=== PATIENT | female | born 1975 | race African-American/Black ===

== ENCOUNTER 2018-05-02 12:13 | Emergency (ER) | payer MEDICAID ==
[~2018-05-02] VITALS: Ht 162.6 cm; Wt 82.5 kg
[2018-05-02] MEDS ORDERED: SODIUM CHLORIDE 0.9% 1,000 ML IV ONE (15:36)
[2018-05-02 16:16] LABS: BASOPHILS % 0.8 % (0.0-2.0); EOSINOPHILS % 0.7 % (0.0-5.0); HEMATOCRIT. 30.4 % (36.0-48.0); HEMOGLOBIN. 8.7 g/dL (12.0-16.0); LYMPHOCYTES % 33.1 % (20.0-50.0); MEAN CORPUSCULAR HEMOGLOBIN 18.6 pg (28.0-32.0); MONOCYTES % 8.4 % (2.0-8.0); PLATELET 570 x1000/uL (130-400); RED BLOOD CELL COUNT 4.69 mill/uL (4.2-5.4); RED CELL DISTRIBUTION WIDTH 18.1 % (11.6-14.6)
[2018-05-02 16:19] LABS: CHLORIDE 106 mEq/L (98-107)
[2018-05-02 16:22] LABS: INR 1.1; PROTHROMBIN TIME 10.6 sec (9.1-11.1)
[2018-05-02 16:32] LABS: PLATELET ESTIMATE MARKEDLY INCREASED
[2018-05-02 17:08] LABS: CLARITY URINE TURBID (CLEAR); KETONES URINE TRACE (NEGATIVE); LEUKOCYTE ESTERASE URINE 3+ (NEGATIVE); NITRITE URINE POSITIVE (NEGATIVE); OCCULT BLOOD URINE 3+ (NEGATIVE); PH URINE 6.5 (4.5-8.0); PROTEIN URINE 2+ (NEGATIVE); SPECIFIC GRAVITY URINE 1.017 (1.005-1.030)
[2018-05-02 17:11] LABS: COLOR URINE YELLOW (YELLOW)
[2018-05-02 18:51] VITALS: BP 140/77
== END 2018-05-02 19:49 | disposition home or self-care (01) ==
LOC: ER 13:44
DX: D50.9 Iron deficiency anemia, unspecified (principal); N39.0 Urinary tract infection, site not specified; K21.9 Gastro-esophageal reflux disease without esophagitis; R42 Dizziness and giddiness; Z98.890 Other specified postprocedural states; Z88.0 Allergy status to penicillin
CPT/HCPCS: 36415; 80053; 81003; 81025; 85025; 85610; 86850; 86900; 86901; 87077; 87086; 87186; 93005; 96360; 96361; 99284; J7030

== ENCOUNTER 2018-10-03 06:34 | Day surgery (SDC) | payer MEDICAID ==
[~2018-10-03] VITALS: Ht 160 cm; Wt 103.0 kg
[2018-10-03 07:30] VITALS: BP 134/81
[2018-10-03] MEDS ORDERED: CEFAZOLIN 1000MG PREMIX 50 ML IV ONE ×2 (08:45→09:13)
[2018-10-03 09:06] LABS: BASOPHILS % 0.8 % (0.0-2.0); EOSINOPHILS % 1.3 % (0.0-5.0); HEMATOCRIT. 34.7 % (36.0-48.0); HEMOGLOBIN. 10.6 g/dL (12.0-16.0); LYMPHOCYTES % 32.6 % (20.0-50.0); MEAN CORPUSCULAR HEMOGLOBIN 23.1 pg (28.0-32.0); MEAN CORPUSCULAR VOLUME 75.9 fL (81.0-99.0); MEAN PLATELET VOLUME 8.4 fl (7.4-10.4); MONOCYTES % 7.6 % (2.0-8.0); NEUTROPHILS % 57.7 % (40.0-76.0); PLATELET 459 x1000/uL (130-400); RED BLOOD CELL COUNT 4.57 mill/uL (4.2-5.4); RED CELL DISTRIBUTION WIDTH 15.4 % (11.6-14.6)
[2018-10-03 09:10] LABS: CHLORIDE 104 mEq/L (98-107)
[2018-10-03 09:24] LABS: B-HCG QUANTITATIVE < 1 mIU/mL (<3)
[2018-10-03] MEDS ORDERED: CLINDAMYCIN 900 MG in DEXTROSE 5% WATER 50 ML IV ONE (11:15)
[2018-10-03] MEDS ORDERED: FENTANYL CITRATE/PF 50MCG/ML 2ML VIAL ONE (11:17)
[2018-10-03] MEDS ORDERED: PROPOFOL 200MG/20ML VIAL IV ONE (11:17)
[2018-10-03] MEDS ORDERED: MIDAZOLAM HCL 2 MG/2 ML VIAL ONE (11:18)
[2018-10-03] MEDS ORDERED: LIDOCAINE HCL/PF 1% 10 MG/ML 5ML VIAL ONE (11:18)
[2018-10-03] MEDS ORDERED: ONDANSETRON HCL 4MG/2ML INJ ONE (11:42)
[2018-10-03] MEDS ORDERED: CLINDAMYCIN 900 MG in SODIUM CHLORIDE 0.9% 50 ML IV NR (12:00)
[2018-10-03] MEDS ORDERED: ONDANSETRON HCL 4MG/2ML INJ IV PRN (12:15)
[2018-10-03] MEDS ORDERED: FENTANYL CITRATE/PF 50MCG/ML 2ML VIAL IV PRN (12:15)
[2018-10-03] MEDS ORDERED: ACETAMINOPHEN 325MG TABLET PO PRN (12:15)
[2018-10-03] MEDS ORDERED: MEPERIDINE HCL/PF 25MG/ML CPJ IV PRN (12:15)
[2018-10-03] MEDS ORDERED: DEXT 5%/0.45% NACL KCL 20MEQ/L 1,000 ML IV SCH (13:30)
== END 2018-10-03 13:45 | disposition home or self-care (01) ==
LOC: ER 06:34 → UNDOADMIN 08:46 → 6EST 08:46 → ER 09:45 → ENRESERV 10:08 → OR 10:50 → ORIP 17:01 → 6EST 17:01
PROVIDERS: ATTEND Specialist
DX: D25.9 Leiomyoma of uterus, unspecified (principal); N72 Inflammatory disease of cervix uteri; N92.1 Excessive and frequent menstruation with irregular cycle; D50.9 Iron deficiency anemia, unspecified; K21.9 Gastro-esophageal reflux disease without esophagitis; J45.909 Unspecified asthma, uncomplicated; E66.9 Obesity, unspecified; Z68.41 Body mass index [BMI] 40.0-44.9, adult; Z79.899 Other long term (current) drug therapy; Z88.0 Allergy status to penicillin
CPT/HCPCS: 36415; 58145; 76830; 76856; 80053; 84702; 85025; 86850; 86900; 86901; 88305; 99285; J2250; J2405; J2704; J3010; J3490; J0690

== ENCOUNTER 2018-11-11 17:05 | Emergency (ER) | payer MEDICAID ==
[~2018-11-11] VITALS: Ht 162.6 cm; Wt 105.0 kg
[2018-11-11] MEDS ORDERED: ENALAPRIL 5MG TABLET PO SCH (18:15)
[2018-11-11 20:29] VITALS: BP 131/71
== END 2018-11-11 20:50 | disposition home or self-care (01) ==
LOC: ER 17:05
DX: I10 Essential (primary) hypertension (principal); R60.0 Localized edema; D64.9 Anemia, unspecified; Z88.0 Allergy status to penicillin; Z87.42 Personal history of other diseases of the female genital tract; Z87.74 Personal history of (corrected) congenital malformations of heart and circulatory system
CPT/HCPCS: 93970; 99284

== ENCOUNTER 2018-12-17 23:34 | Emergency (ER) | payer MEDICAID, MEDICARE ==
[~2018-12-17] VITALS: Ht 162.6 cm; Wt 103.0 kg
[2018-12-18 08:22] LABS: BASOPHILS % 0.8 % (0.0-2.0); EOSINOPHILS % 0.9 % (0.0-5.0); HEMATOCRIT. 34.3 % (36.0-48.0); HEMOGLOBIN. 10.5 g/dL (12.0-16.0); LYMPHOCYTES % 28.8 % (20.0-50.0); MEAN CORPUSCULAR HEMOGLOBIN 22.2 pg (28.0-32.0); MEAN CORPUSCULAR VOLUME 72.9 fL (81.0-99.0); MEAN PLATELET VOLUME 8.1 fl (7.4-10.4); MONOCYTES % 8.5 % (2.0-8.0); PLATELET 454 x1000/uL (130-400); RED BLOOD CELL COUNT 4.71 mill/uL (4.2-5.4); RED CELL DISTRIBUTION WIDTH 16.3 % (11.6-14.6)
[2018-12-18 08:31] LABS: CHLORIDE 108 mEq/L (98-107)
[2018-12-18 10:35] VITALS: BP 165/95
== END 2018-12-18 10:34 | disposition home or self-care (01) ==
LOC: ER 23:34
DX: R06.02 Shortness of breath (principal); I11.9 Hypertensive heart disease without heart failure; D64.9 Anemia, unspecified; Z98.890 Other specified postprocedural states; Z88.0 Allergy status to penicillin
CPT/HCPCS: 36415; 71045; 81025; 83880; 84484; 93005; 99284

== ENCOUNTER 2019-01-04 16:31 | Inpatient (IN) | payer MEDICARE ==
[~2019-01-04] VITALS: Ht 160 cm; Wt 104.8 kg
[2019-01-04 19:23] LABS: CHLORIDE 105 mEq/L (98-107)
[2019-01-04 19:28] LABS: HCG SCREEN NEGATIVE
[2019-01-04 19:29] LABS: D-DIMER 0.62 mg/L FEU (<0.50); PARTIAL THROMBOPLASTIN TIME 27.6 sec (23.4-31.0); PROTHROMBIN TIME 10.4 sec (9.6-11.0)
[2019-01-04 19:36] LABS: BASOPHILS % 0.5 % (0.0-2.0); EOSINOPHILS % 1.3 % (0.0-5.0); HEMATOCRIT. 37.6 % (36.0-48.0); HEMOGLOBIN. 11.5 g/dL (12.0-16.0); LYMPHOCYTES % 33.8 % (20.0-50.0); MEAN CORPUSCULAR VOLUME 75.2 fL (81.0-99.0); MEAN PLATELET VOLUME 8.6 fl (7.4-10.4); MONOCYTES % 6.8 % (2.0-8.0); NEUTROPHILS % 57.6 % (40.0-76.0); PLATELET 404 x1000/uL (130-400); RED CELL DISTRIBUTION WIDTH 18.3 % (11.6-14.6)
[2019-01-04] MEDS ORDERED: IOHEXOL-350 100 ML BOTTLE ONE (22:17)
[2019-01-05] MEDS ORDERED: LORAZEPAM 0.5MG TABLET PO PRN (08:15)
[2019-01-05] MEDS ORDERED: CLONIDINE 0.1MG TABLET PO PRN (08:15)
[2019-01-05] MEDS ORDERED: HYDROCODONE/ACETAMINOPHEN 5/325MG TABLET PO PRN (08:15)
[2019-01-05] MEDS ORDERED: ONDANSETRON HCL 4MG/2ML INJ IV PRN (08:15)
[2019-01-05] MEDS ORDERED: IPRATROPIUM/ALBUTEROL 0.5-3(2.5)MG/3ML NEB HHN PRN (08:15)
[2019-01-05] MEDS ORDERED: DOCUSATE SODIUM 100MG CAPSULE PO PRN (08:15)
[2019-01-05] MEDS ORDERED: MORPHINE SULFATE 2 MG/ML CPJ (NOT FOR IM USE) IV PRN (08:15)
[2019-01-05] MEDS ORDERED: ACETAMINOPHEN 325MG TABLET PO PRN (08:15)
[2019-01-05 10:02] VITALS: BP 148/92
[2019-01-05] MEDS ORDERED: LORA10TA7 MT (10:08)
[2019-01-05] MEDS ORDERED: FERR325T6 MT (10:08)
[2019-01-05] MEDS ORDERED: ENAL2.5T MT (10:08)
[2019-01-05] MEDS ORDERED: POTASSIUM CHLORIDE 20MEQ TABLET SR PO SCH (11:15)
[2019-01-05] MEDS ORDERED: ENOXAPARIN 30MG/0.3ML SYR SUBCUT SCH (11:30)
[2019-01-05 12:00] VITALS: BP 130/70
[2019-01-05] MEDS ORDERED: GUAI118S49 MT (12:08)
[2019-01-05] MEDS ORDERED: HYDR12.54 MT (12:08)
[2019-01-05 14:46] VITALS: BP 130/70
[2019-01-05 16:00] VITALS: BP 129/70
== END 2019-01-05 18:04 | disposition home or self-care (01) | DRG 145 ==
LOC: ER 16:31 → 8WST 21:39 → ENRESERV 01-05 08:11
PROVIDERS: ADMIT Internal Medicine; ATTEND Internal Medicine
DX: J20.8 Acute bronchitis due to other specified organisms (principal); I38 Endocarditis, valve unspecified; D50.9 Iron deficiency anemia, unspecified; D72.829 Elevated white blood cell count, unspecified; E87.6 Hypokalemia; I10 Essential (primary) hypertension; I25.9 Chronic ischemic heart disease, unspecified
CPT/HCPCS: 36415; 71045; 71275; 83880; 84484; 84703; 85379; 93005; 93970; 99285; J1650; Q9967

== ENCOUNTER 2019-01-07 09:12 | Emergency (ER) | payer MEDICARE ==
[~2019-01-07] VITALS: Ht 167.6 cm; Wt 75.0 kg
[~2019-01-07 09:12] MED LIST: FERR325T6 MT; GUAI118S49 MT; HYDR12.54 MT; LORA10TA7 MT
[2019-01-07 10:02] LABS: BG BASE EXCESS 0.3 mmol/L (-2.0-2.0); BG CARBOXYHEMOGLOBIN 0.1 % (0.5-1.5); BG DEOXYHEMOGLOBIN 4.5 % (0.0-5.0); BG FRACTION INSPIRED OXYGEN 21; BG HCO3 ACT 25.3 mmol/L (22.0-26.0); BG METHEMOGLOBIN 0.2 % (0.0-1.5); BG OXYGEN SATURATION 95.5 % (92.0-98.5); BG OXYHEMOGLOBIN 95.2 % (94.0-97.0); BG PCO2 42.3 mmHg (35.0-45.0); BG PH 7.394 (7.350-7.450); BG PO2 81.3 mmHg (75.0-100.0); BG SAMPLE SITE RIGHT BRACHIAL; BG TOTAL HEMOGLOBIN 11.8 g/dL (12.0-18.0); BG VENT MODE ROOM AIR
[2019-01-07 10:45] LABS: BASOPHILS % 0.8 % (0.0-2.0); EOSINOPHILS % 1.1 % (0.0-5.0); HEMATOCRIT. 34.8 % (36.0-48.0); HEMOGLOBIN. 10.7 g/dL (12.0-16.0); LYMPHOCYTES % 24.9 % (20.0-50.0); MEAN CORPUSCULAR HEMOGLOBIN 23.1 pg (28.0-32.0); MEAN CORPUSCULAR VOLUME 75.2 fL (81.0-99.0); MEAN PLATELET VOLUME 8.2 fl (7.4-10.4); NEUTROPHILS % 65.2 % (40.0-76.0); PLATELET 385 x1000/uL (130-400); RED BLOOD CELL COUNT 4.63 mill/uL (4.2-5.4); RED CELL DISTRIBUTION WIDTH 18.7 % (11.6-14.6)
[2019-01-07 10:53] LABS: CHLORIDE 106 mEq/L (98-107)
[2019-01-07 11:45] VITALS: BP 152/86
== END 2019-01-07 11:46 | disposition home or self-care (01) ==
LOC: ER 09:12
DX: R06.00 Dyspnea, unspecified (principal)
CPT/HCPCS: 36415; 36600; 71045; 82375; 82805; 93005; 99284

== ENCOUNTER 2021-02-09 23:02 | Emergency (ER) | payer MEDICARE ==
[~2021-02-09] VITALS: Ht 160 cm; Wt 105.0 kg
[2021-02-10 03:09] LABS: BASOPHILS % 0.7 % (0.0-2.0); EOSINOPHILS % 1.7 % (0.0-5.0); HEMATOCRIT. 41.3 % (36.0-48.0); MEAN CORPUSCULAR HEMOGLOBIN 26.8 pg (28.0-32.0); MEAN CORPUSCULAR VOLUME 84.9 fL (81.0-99.0); MEAN PLATELET VOLUME 8.9 fl (7.4-10.4); MONOCYTES % 9.2 % (2.0-8.0); NEUTROPHILS % 51.4 % (40.0-76.0); PLATELET 332 x1000/uL (130-400); RED BLOOD CELL COUNT 4.87 mill/uL (4.2-5.4); RED CELL DISTRIBUTION WIDTH 14.2 % (11.6-14.6)
[2021-02-10 03:12] LABS: CHLORIDE 106 mEq/L (98-107)
[2021-02-10] MEDS ORDERED: ACETAMINOPHEN 325MG TABLET PO ONE (04:15)
[2021-02-10] MEDS ORDERED: ACET-2708 MT (04:30)
[2021-02-10 04:50] VITALS: BP 125/69
== END 2021-02-10 04:50 | disposition home or self-care (01) ==
LOC: ER 23:02
DX: R60.0 Localized edema (principal); Z13.9 Encounter for screening, unspecified; I10 Essential (primary) hypertension; Z88.0 Allergy status to penicillin
CPT/HCPCS: 36415; 71045; 80053; 83880; 84484; 85025; 85379; 93005; 93970; 99285

== ENCOUNTER 2021-02-22 21:55 | Emergency (ER) | payer MEDICARE ==
[~2021-02-22] VITALS: Ht 160 cm; Wt 107.0 kg
[~2021-02-22 21:55] MED LIST changes: +ACET-2708 MT
[2021-02-23] MEDS ORDERED: KETOROLAC 60MG/2ML VIAL IM ONE (00:45)
[2021-02-23 00:53] VITALS: BP 146/71
[2021-02-23 01:23] LABS: BASOPHILS % 0.9 % (0.0-2.0); EOSINOPHILS % 2.2 % (0.0-5.0); HEMATOCRIT. 39.7 % (36.0-48.0); HEMOGLOBIN. 12.9 g/dL (12.0-16.0); MEAN CORPUSCULAR HEMOGLOBIN 27.3 pg (28.0-32.0); MEAN CORPUSCULAR VOLUME 84.2 fL (81.0-99.0); MEAN PLATELET VOLUME 8.2 fl (7.4-10.4); MONOCYTES % 8.6 % (2.0-8.0); NEUTROPHILS % 49.3 % (40.0-76.0); PLATELET 335 x1000/uL (130-400); RED BLOOD CELL COUNT 4.71 mill/uL (4.2-5.4); RED CELL DISTRIBUTION WIDTH 14.3 % (11.6-14.6)
[2021-02-23 01:29] LABS: CHLORIDE 106 mEq/L (98-107)
[2021-02-23] MEDS ORDERED: POTASSIUM CHLORIDE 20MEQ TABLET SR PO ONE (02:00)
== END 2021-02-23 03:29 | disposition home or self-care (01) ==
LOC: ER 21:55
DX: R07.89 Other chest pain (principal); E87.6 Hypokalemia; I51.9 Heart disease, unspecified; R73.03 Prediabetes; Z88.0 Allergy status to penicillin; Z95.1 Presence of aortocoronary bypass graft
CPT/HCPCS: 36415; 71045; 80053; 81025; 83880; 84484; 85025; 93005; 96372; 99285; J1885

== ENCOUNTER 2022-06-12 13:47 | Emergency (ER) | payer MEDICAID, MEDICARE ==
[~2022-06-12] VITALS: Ht 160 cm; Wt 104.0 kg
[2022-06-12] MEDS ORDERED: HYDRALAZINE HCL 50MG TABLET PO ONE (18:15)
[2022-06-12] MEDS ORDERED: ACETAMINOPHEN 325MG TABLET PO ONE (18:15)
[2022-06-12] MEDS ORDERED: HYDR-4133 MT (19:18)
[2022-06-12 20:35] VITALS: BP 147/90
== END 2022-06-12 20:35 | disposition home or self-care (01) ==
LOC: ER 13:47
DX: I10 Essential (primary) hypertension (principal); Z88.0 Allergy status to penicillin; Z79.899 Other long term (current) drug therapy
CPT/HCPCS: 93005; 99283

== ENCOUNTER 2022-12-26 12:25 | Emergency (ER) | payer MEDICAID, OTHER ==
[~2022-12-26] VITALS: Ht 160 cm; Wt 107.0 kg
[~2022-12-26 12:25] MED LIST changes: +ASPI-1497 PO; +AZIT500T8 PO; +EMPA25TA PO; +ENAL2.5T39 PO; +FURO-151 PO; +HYDR-4133 MT; +METO25TA6 PO; +OMEP40CA20 PO
[2022-12-26 12:37] VITALS: O2SAT 100
[2022-12-26] MEDS ORDERED: AMLODIPINE 5MG TABLET PO ONE (13:15)
[2022-12-26 13:38] LABS: BASOPHILS % 0.5 % (0.0-2.0); EOSINOPHILS % 0.7 % (0.0-5.0); HEMATOCRIT. 38.4 % (36.0-48.0); HEMOGLOBIN. 12.3 g/dL (12.0-16.0); MEAN CORPUSCULAR HEMOGLOBIN 26.6 pg (28.0-32.0); MEAN CORPUSCULAR VOLUME 83.1 fL (81.0-99.0); MEAN PLATELET VOLUME 8.4 fl (7.4-10.4); MONOCYTES % 8.1 % (2.0-8.0); NEUTROPHILS % 63.7 % (40.0-76.0); PLATELET 351 x1000/uL (130-400); RED BLOOD CELL COUNT 4.62 mill/uL (4.2-5.4); RED CELL DISTRIBUTION WIDTH 15.2 % (11.6-14.6); WHITE BLOOD COUNT 9.9 x1000/uL (4.5-11.0)
[2022-12-26 13:42] LABS: CHLORIDE 104 mEq/L (98-107); INDEX HEMOLYSI 1 (1-3); INDEX ICTERIC 1 (1-4); INDEX LIPEMIC 1 (1-3); POTASSIUM 3.6 mEq/L (3.5-5.1); SODIUM 139 mEq/L (136-145)
[2022-12-26 13:54] LABS: ALANINE AMINOTRANSFERASE 26 IU/L (13-61); ALBUMIN 3.6 g/dL (3.4-5.0); ASPARTATE AMINOTRANSFERASE 18 IU/L (15-37); BILIRUBIN TOTAL 0.3 mg/dL (0.1-1.0); CALCIUM 9.2 mg/dL (8.5-10.1); CARBON DIOXIDE 29 mEq/L (21-32); CREATININE 0.6 mg/dL (0.6-1.3); GLUCOSE 150 mg/dL (70-105); NT PRO B-TYPE NATRIURETIC PEP 90 pg/mL (5-125); PROTEIN TOTAL 8.3 g/dL (6.0-8.3); TROPONIN I HIGH SENSITIVITY 4 ng/L (<54); UREA NITROGEN BLOOD 10 mg/dL (7-21)
[2022-12-26] MEDS ORDERED: AMLO5TAB4 MT (14:50)
[2022-12-26 15:49] VITALS: BP 141/86; PULSE 86; RESP 18; TEMP 98
== END 2022-12-26 15:55 | disposition home or self-care (01) ==
LOC: ER 12:25
DX: I10 Essential (primary) hypertension (principal); Z88.0 Allergy status to penicillin; Z79.899 Other long term (current) drug therapy
CPT/HCPCS: 36415; 80053; 83880; 84484; 85025; 93005; 99284

== ENCOUNTER 2023-02-14 02:50 | Emergency (ER) | payer MEDICAID, MEDICARE ==
[~2023-02-14] VITALS: Ht 160 cm; Wt 107.2 kg
[~2023-02-14 02:50] MED LIST changes: +AMLO5TAB4 MT
[2023-02-14 02:53] VITALS: BP 132/81; RESP 16; TEMP 98.5; O2SAT 99
[2023-02-14 02:56] VITALS: PULSE 85
[2023-02-14 03:24] LABS: BASOPHILS % 0.5 % (0.0-2.0); EOSINOPHILS % 1.2 % (0.0-5.0); HEMATOCRIT. 41.3 % (36.0-48.0); HEMOGLOBIN. 13.3 g/dL (12.0-16.0); MEAN CORPUSCULAR HEMOGLOBIN 26.8 pg (28.0-32.0); MEAN CORPUSCULAR HGB CONC 32.1 g/dL (31.0-37.0); MEAN CORPUSCULAR VOLUME 83.4 fL (81.0-99.0); MEAN PLATELET VOLUME 8.6 fl (7.4-10.4); MONOCYTES % 9.3 % (2.0-8.0); PLATELET 360 x1000/uL (130-400); RED BLOOD CELL COUNT 4.95 mill/uL (4.2-5.4); RED CELL DISTRIBUTION WIDTH 15.3 % (11.6-14.6); WHITE BLOOD COUNT 11.1 x1000/uL (4.5-11.0)
[2023-02-14 03:28] LABS: PARTIAL THROMBOPLASTIN TIME 27.6 sec (23.4-31.0); PROTHROMBIN TIME 10.6 sec (9.6-11.0)
[2023-02-14 03:37] LABS: CHLORIDE 107 mEq/L (98-107); INDEX HEMOLYSI 1 (1-3); INDEX ICTERIC 1 (1-4); INDEX LIPEMIC 1 (1-3); POTASSIUM 3.4 mEq/L (3.5-5.1); SODIUM 140 mEq/L (136-145)
[2023-02-14 03:46] LABS: ALANINE AMINOTRANSFERASE 25 IU/L (13-61); ALBUMIN 3.8 g/dL (3.4-5.0); ASPARTATE AMINOTRANSFERASE 15 IU/L (15-37); BILIRUBIN TOTAL 0.3 mg/dL (0.1-1.0); CALCIUM 8.9 mg/dL (8.5-10.1); CREATININE 0.7 mg/dL (0.6-1.3); GLUCOSE 181 mg/dL (70-105); PROTEIN TOTAL 8.5 g/dL (6.0-8.3); TROPONIN I HIGH SENSITIVITY 5 ng/L (<54); UREA NITROGEN BLOOD 8 mg/dL (7-21)
[2023-02-14] MEDS ORDERED: ALBU6.7H15 INH (05:33)
[2023-02-14] MEDS ORDERED: AZIT1PAC9 PO (05:33)
[2023-02-14 11:59] LABS: CARBON DIOXIDE 24 mEq/L (21-32)
== END 2023-02-14 05:47 | disposition home or self-care (01) ==
LOC: ER 02:50
DX: J40 Bronchitis, not specified as acute or chronic (principal); Z88.0 Allergy status to penicillin; Z79.899 Other long term (current) drug therapy
CPT/HCPCS: 36415; 71045; 80053; 84484; 85025; 93005; 99285

== ENCOUNTER 2023-08-09 15:13 | Emergency (ER) | payer BC, MEDICAID, MEDICARE ==
[~2023-08-09] VITALS: Ht 157.5 cm; Wt 101.0 kg
[~2023-08-09 15:13] MED LIST changes: +ALBU6.7H15 INH; +AZIT1PAC9 PO; +HYDR-2988 MT; -HYDR-4133 MT
[2023-08-09 15:33] VITALS: O2SAT 96
[2023-08-09] MEDS: DEXAMETHASONE 4MG/ML 1ML VIAL IV ONE (17:38)
[2023-08-09] MEDS: KETOROLAC 30MG/ML VIAL IM ONE (17:38)
[2023-08-09] MEDS ORDERED: CLIN-194 MT (18:53)
[2023-08-09 19:14] VITALS: BP 133/79; PULSE 99; RESP 18; TEMP 97.8
== END 2023-08-09 19:00 | disposition home or self-care (01) ==
LOC: ER 15:13
DX: J02.9 Acute pharyngitis, unspecified (principal); R50.9 Fever, unspecified; R13.19 Other dysphagia; R59.0 Localized enlarged lymph nodes; I10 Essential (primary) hypertension; Z98.890 Other specified postprocedural states
CPT/HCPCS: 99284; 96374; 81025; 87430; 87070; 96372; J1100; J1885

== ENCOUNTER 2023-08-13 06:28 | Emergency (ER) | payer BC, MEDICAID ==
[~2023-08-13] VITALS: Ht 157.5 cm; Wt 98.0 kg
[~2023-08-13 06:28] MED LIST changes: +CLIN-194 MT
[2023-08-13 06:37] VITALS: TEMP 98.3; O2SAT 100
[2023-08-13] MEDS ORDERED: AZIT250T12 MT (09:00)
[2023-08-13] MEDS ORDERED: IBUP-2029 MT (09:01)
[2023-08-13 09:22] VITALS: BP 137/85; PULSE 82; RESP 20
[2023-08-13] MEDS: KETOROLAC 30MG/ML VIAL IM ONE (09:22)
== END 2023-08-13 09:28 | disposition home or self-care (01) ==
LOC: ER 06:28
DX: H66.92 Otitis media, unspecified, left ear (principal); E11.9 Type 2 diabetes mellitus without complications; I10 Essential (primary) hypertension; Z98.890 Other specified postprocedural states; Z88.0 Allergy status to penicillin
CPT/HCPCS: 99283; 96372; J1885

== ENCOUNTER 2024-04-12 22:18 | Inpatient (IN) | payer MEDICAID ==
[~2024-04-12] VITALS: Ht 160 cm; Wt 102.4 kg
[2024-04-12 01:20] VITALS: PULSE 89; RESP 22; O2SAT 96
[~2024-04-12 22:18] MED LIST changes: -AMLO5TAB4 MT; +AMLO5TAB5 MT; +ASPI-1079 PO; -AZIT1PAC9 PO; -AZIT500T8 PO; -CLIN-194 MT; +FURO-151 MT; +IBUP-2029 MT; +LEVO-65 MT; +METO-539 MT
[2024-04-13] MEDS: ASPIRIN 325MG EC TABLET PO ONE (00:15)
[2024-04-13] MEDS ORDERED: ACETAMINOPHEN 325MG TABLET PO ONE (00:30)
[2024-04-13] MEDS ORDERED: LEVOFLOXACIN 750MG PREMIX 150 ML IV ONE (00:45)
[2024-04-13] MEDS: SODIUM CHLORIDE 0.9% (SEPSIS BOLUS) IV ONE (00:45)
[2024-04-13 01:01] LABS: HEMATOCRIT. 39.7 % (36.0-48.0); MEAN CORPUSCULAR HEMOGLOBIN 28.7 pg (28.0-32.0); MEAN CORPUSCULAR HGB CONC 32.6 g/dL (31.0-37.0); MEAN CORPUSCULAR VOLUME 87.9 fL (81.0-99.0); MEAN PLATELET VOLUME 8.4 fl (7.4-10.4); PLATELET 256 x1000/uL (130-400); RED BLOOD CELL COUNT 4.51 mill/uL (4.2-5.4); RED CELL DISTRIBUTION WIDTH 14.6 % (11.6-14.6); WHITE BLOOD COUNT 6.2 x1000/uL (4.5-11.0)
[2024-04-13 01:17] LABS: CHLORIDE 102 mEq/L (98-107); POTASSIUM 3.4 mEq/L (3.5-5.1); SODIUM 136 mEq/L (136-145)
[2024-04-13 01:18] LABS: CALCIUM 9.1 mg/dL (8.7-10.4); CARBON DIOXIDE 26 mEq/L (21-32)
[2024-04-13] MEDS: ALBUTEROL (0.083%) 2.5MG/3ML NEB HHN STA ×2 (01:18→01:48)
[2024-04-13 01:20] LABS: DIFFERENTIAL COMMENT 1
[2024-04-13 01:23] LABS: CREATININE 0.7 mg/dL (0.6-1.0); GLUCOSE 102 mg/dL (70-105); UREA NITROGEN BLOOD 7 mg/dL (9-23)
[2024-04-13 01:38] LABS: TROPONIN I HIGH SENSITIVITY < 4 ng/L (3.0-34)
[2024-04-13 01:40] LABS: HCG SCREEN NEGATIVE
[2024-04-13] MEDS: POTASSIUM CHLORIDE 20MEQ/PACKET PO ONE (01:45)
[2024-04-13 01:48] VITALS: PULSE 93; RESP 20; O2SAT 99
[2024-04-13] MEDS: ACETAMINOPHEN 500MG TABLET PO NR (03:12)
[2024-04-13] MEDS ORDERED: LEVOFLOXACIN 750MG PREMIX 150 ML IV NR (03:15)
[2024-04-13 08:08] LABS: PLATELET ESTIMATE NORMAL
[2024-04-13 12:00] VITALS: BP 134/74; PULSE 81; RESP 16; TEMP 36.72516; O2SAT 97
[2024-04-13] MEDS ORDERED: ONDANSETRON HCL 4MG/2ML INJ IV PRN (12:30)
[2024-04-13] MEDS ORDERED: DOCUSATE SODIUM 100MG CAPSULE PO PRN (12:30)
[2024-04-13] MEDS ORDERED: CLONIDINE 0.1MG TABLET PO PRN (12:30)
[2024-04-13] MEDS ORDERED: DEXTROSE 50% WATER 50ML SYRINGE IV PRN (12:30)
[2024-04-13] MEDS: ENOXAPARIN 30MG/0.3ML SYR SUBCUT SCH (14:22)
[2024-04-13 15:11] LABS: BG BASE EXCESS -0.2 mmol/L (-2.0-3.0); BG CARBOXYHEMOGLOBIN 0.6 % (0.5-1.5); BG DEOXYHEMOGLOBIN 5.6 % (0.0-5.0); BG FRACTION INSPIRED OXYGEN 21; BG HCO3 ACT 24.1 mmol/L (21.0-28.0); BG METHEMOGLOBIN 0.2 % (0.5-1.5); BG OXYGEN SATURATION 94.4 % (94.0-98.0); BG OXYHEMOGLOBIN 93.6 % (94.0-98.0); BG PCO2 38.3 mmHg (32.0-45.0); BG PH 7.417 (7.350-7.450); BG PO2 71.8 mmHg (83.0-108.0); BG SAMPLE SITE LEFT RADIAL; BG TOTAL HEMOGLOBIN 13.4 g/dL (12.0-16.0); BG VENT MODE ROOM AIR
[2024-04-13 16:00] VITALS: BP 132/62; PULSE 84; RESP 16; TEMP 36.78072; O2SAT 97
[2024-04-13 16:08] LABS: CHOLESTEROL 126 mg/dL (<200); T4 FREE 1.07 ng/dL (0.89-1.76)
[2024-04-13 16:09] LABS: THYROID STIMULATING HORMONE 0.61 uIU/mL (0.55-4.78); TRIGLYCERIDE 84 mg/dL (0-150)
[2024-04-13 16:10] LABS: LDL CHOLESTEROL 75 mg/dL (5-100)
[2024-04-13 16:11] LABS: HDL CHOLESTEROL 36 mg/dL (>65)
[2024-04-13 16:21] LABS: TROPONIN I HIGH SENSITIVITY < 4 ng/L (3.0-34)
[2024-04-13] MEDS: BLOOD SUGAR DIAGNOSTIC STRIP TEST SCH (16:45)
[2024-04-13] MEDS: INSULIN LISPRO 100 UNITS/ML SUBCUT SCH (18:16)
[2024-04-13 20:00] VITALS: BP 134/75; PULSE 85; RESP 18; TEMP 37.11408; O2SAT 97
[2024-04-13] MEDS: ATORVASTATIN CALCIUM 40MG TABLET PO SCH (20:38)
[2024-04-13] MEDS: METHYLPREDNISOLONE SOD SUCC 40MG/ML (ACT-O-VIAL) IV SCH (23:00)
[2024-04-14 00:01] VITALS: BP 114/75; PULSE 84; RESP 16; TEMP 37.28076; O2SAT 99
[2024-04-14 00:42] LABS: TROPONIN I HIGH SENSITIVITY < 4 ng/L (3.0-34)
[2024-04-14 07:37] LABS: BASOPHILS % 0.2 % (0.0-2.0); EOSINOPHILS % 1.4 % (0.0-5.0); HEMATOCRIT. 38.5 % (36.0-48.0); HEMOGLOBIN. 12.4 g/dL (12.0-16.0); LYMPHOCYTES % 46.4 % (20.0-50.0); MEAN CORPUSCULAR HEMOGLOBIN 28.7 pg (28.0-32.0); MEAN CORPUSCULAR HGB CONC 32.1 g/dL (31.0-37.0); MEAN CORPUSCULAR VOLUME 89.2 fL (81.0-99.0); MEAN PLATELET VOLUME 8.6 fl (7.4-10.4); MONOCYTES % 14.1 % (2.0-8.0); NEUTROPHILS % 37.9 % (40.0-76.0); PLATELET 234 x1000/uL (130-400); RED BLOOD CELL COUNT 4.31 mill/uL (4.2-5.4); RED CELL DISTRIBUTION WIDTH 14.7 % (11.6-14.6)
[2024-04-14 07:49] LABS: CARBON DIOXIDE 26 mEq/L (21-32); CHLORIDE 102 mEq/L (98-107); POTASSIUM 3.9 mEq/L (3.5-5.1); SODIUM 135 mEq/L (136-145)
[2024-04-14 07:50] LABS: CALCIUM 8.8 mg/dL (8.7-10.4)
[2024-04-14 07:54] LABS: CREATININE 0.6 mg/dL (0.6-1.0)
[2024-04-14 07:55] LABS: GLUCOSE 196 mg/dL (70-105)
[2024-04-14 07:56] LABS: UREA NITROGEN BLOOD 7 mg/dL (9-23)
[2024-04-14 07:58] LABS: TROPONIN I HIGH SENSITIVITY < 4 ng/L (3.0-34)
[2024-04-14 08:00] VITALS: BP 104/59; PULSE 75; RESP 18; TEMP 36.114; O2SAT 96
[2024-04-14] MEDS: PANTOPRAZOLE SODIUM 40 MG/VIAL IV SCH (09:36)
[2024-04-14] MEDS: ASPIRIN 81MG TABLET PO SCH (09:36)
[2024-04-14 12:00] VITALS: BP 100/63; PULSE 77; RESP 19; TEMP 36.83628; O2SAT 97
[2024-04-14] MEDS: LEVOFLOXACIN 250MG TABLET PO SCH (12:57)
[2024-04-14 16:00] VITALS: BP 142/85; PULSE 80; RESP 19; TEMP 36.89184; O2SAT 98
[2024-04-14 20:00] VITALS: BP 124/74; PULSE 72; RESP 20; TEMP 36.33624; O2SAT 97
[2024-04-15] VITALS (9 sets, daily range): BP systolic 110–135; BP diastolic 62–69; PULSE 60–83; RESP 18–22; TEMP 36.114–37.16964; O2SAT 96–99
[2024-04-15] MEDS: HYDROCODONE/ACETAMINOPHEN 5/325MG TABLET PO PRN (02:58)
[2024-04-15] MEDS: IPRATROPIUM/ALBUTEROL 0.5-3(2.5)MG/3ML NEB HHN SCH (08:58)
[2024-04-15] MEDS ORDERED: METH4TAB95 MT (13:53)
[2024-04-15] MEDS ORDERED: FLUT1BLS INH (13:53)
[2024-04-15] MEDS ORDERED: LEVO750T68 MT (13:53)
[2024-04-15] MEDS: INSULIN LISPRO 100 UNITS/ML SUBCUT ONE (14:05)
[2024-04-15] MEDS ORDERED: NALOXONE HCL 0.4MG/ML VIAL IV PRN (14:45)
[2024-04-15] MEDS: INSULIN LISPRO 100 UNITS/ML SUBCUT NR (15:52)
[2024-04-15] MEDS: MONTELUKAST SODIUM 10MG TABLET PO SCH (18:09)
[2024-04-15] MEDS ORDERED: METHYLPREDNISOLONE SOD SUCC 40MG/ML (ACT-O-VIAL) IV SCH (21:00)
[2024-04-16] MEDS ORDERED: METHYLPREDNISOLONE SOD SUCC 40MG/ML (ACT-O-VIAL) IV SCH (09:00)
== END 2024-04-15 20:40 | disposition home or self-care (01) | DRG 141 ==
LOC: ER 22:18 → EDBEDREQ 04-13 00:22 → 5WST 04-13 01:46 → EDBEDREQ 04-13 01:49
PROVIDERS: ADMIT Internal Medicine; ATTEND Internal Medicine
DX: J45.901 Unspecified asthma with (acute) exacerbation (principal); J96.00 Acute respiratory failure, unspecified whether with hypoxia or hypercapnia; J18.9 Pneumonia, unspecified organism; I11.9 Hypertensive heart disease without heart failure; E11.9 Type 2 diabetes mellitus without complications; E87.6 Hypokalemia; Z82.49 Family history of ischemic heart disease and other diseases of the circulatory system; Z88.0 Allergy status to penicillin; Z88.8 Allergy status to other drugs, medicaments and biological substances
CPT/HCPCS: 36415; 36600; 71045; 80048; 80061; 82375; 82805; 82962; 83036; 83605; 83880; 84439; 84443; 84484; 84703; 85025; 93005; 93306; 93970; 94640; 99285; J1650; J1815; J2470; J2920; J7030

== ENCOUNTER 2024-07-24 02:14 | Emergency (ER) | payer MEDICAID ==
[~2024-07-24] VITALS: Ht 160 cm; Wt 104.1 kg
[~2024-07-24 02:14] MED LIST changes: +FLUT1BLS INH; -FURO-151 PO; -GUAI118S49 MT; -IBUP-2029 MT; -LEVO-65 MT; +LEVO750T68 MT; +METH4TAB95 MT; -METO-539 MT; -METO25TA6 PO
[2024-07-24 02:46] VITALS: O2SAT 99
[2024-07-24 07:31] LABS: BASOPHILS % 0.8 % (0.0-2.0); EOSINOPHILS % 1.4 % (0.0-5.0); HEMATOCRIT. 42.4 % (36.0-48.0); HEMOGLOBIN. 13.8 g/dL (12.0-16.0); LYMPHOCYTES % 37.4 % (20.0-50.0); MEAN CORPUSCULAR HEMOGLOBIN 28.5 pg (28.0-32.0); MEAN CORPUSCULAR HGB CONC 32.5 g/dL (31.0-37.0); MEAN CORPUSCULAR VOLUME 87.6 fL (81.0-99.0); MEAN PLATELET VOLUME 8.4 fl (7.4-10.4); MONOCYTES % 8.8 % (2.0-8.0); NEUTROPHILS % 51.6 % (40.0-76.0); PLATELET 324 x1000/uL (130-400); RED BLOOD CELL COUNT 4.84 mill/uL (4.2-5.4); RED CELL DISTRIBUTION WIDTH 13.6 % (11.6-14.6); WHITE BLOOD COUNT 10.6 x1000/uL (4.5-11.0)
[2024-07-24 07:37] LABS: CHLORIDE 105 mEq/L (98-107); POTASSIUM 3.4 mEq/L (3.5-5.1); SODIUM 139 mEq/L (136-145)
[2024-07-24 07:38] LABS: CARBON DIOXIDE 31 mEq/L (21-32)
[2024-07-24 07:39] LABS: CALCIUM 9.6 mg/dL (8.7-10.4)
[2024-07-24 07:43] LABS: CREATININE 0.6 mg/dL (0.6-1.0); GLUCOSE 132 mg/dL (70-105)
[2024-07-24 07:44] LABS: UREA NITROGEN BLOOD 8 mg/dL (9-23)
[2024-07-24 07:48] LABS: TROPONIN I HIGH SENSITIVITY < 4 ng/L (3.0-34)
[2024-07-24 08:30] VITALS: BP 166/89; PULSE 72; RESP 12; TEMP 37; O2SAT 100
== END 2024-07-24 06:32 | disposition home or self-care (01) ==
LOC: ER 02:14
DX: I11.0 Hypertensive heart disease with heart failure (principal); I50.9 Heart failure, unspecified; E11.9 Type 2 diabetes mellitus without complications; J45.909 Unspecified asthma, uncomplicated; Z88.8 Allergy status to other drugs, medicaments and biological substances; Z88.0 Allergy status to penicillin; Z79.82 Long term (current) use of aspirin; Z79.899 Other long term (current) drug therapy; Z98.890 Other specified postprocedural states
CPT/HCPCS: 36415; 71045; 80048; 83880; 84484; 85025; 93005; 99285